=== PATIENT | female | born 1940 | race Caucasian/White ===

== ENCOUNTER 2016-12-17 08:57 | Inpatient (IN) | payer OTHER ==
[~2016-12-17] VITALS: Ht 162.6 cm; Wt 56.5 kg
[~2016-12-17 08:57] MED LIST: CLONAZEPAM0.5 MG PO; HYDROCHLOROTHIA25 MG PO; LOPRESSOR100 M1 PO; METOCLOPRAMIDE10 MG PO; PREVACID15 M2 PO; PREVACID30 MG PO; TOPROL XL100 MG PO; TRIAMTERENE-HC1 EACH PO; ZANTAC150 MG PO; ZOFRAN4 MG PO; ZOFRAN8 MG PO
[2016-12-17 10:28] LABS: EOSINOPHIL (%) 0.4 % (0-5); HEMATOCRIT 42.8 % (36.0-46.0); INSTRUMENT ABS NEUTROPHIL CT 3.4 K/uL; LYMPHOCYTE COUNT 0.7 K/uL (1.0-2.8); MCH 29.4 PG (29.0-34.0); MCHC 32.5 G/DL (30.0-36.0); MCV 90.7 FL (83-99); MEAN PLAT.VOLUME 10.6 uM^3 (9.5-12.4); MONOCYTE (%) 14.8 % (3-12); MONOCYTE COUNT 0.7 K/uL (0-0.8); NEUTROPHIL (%) 69.8 % (45-76); NEUTROPHIL COUNT 3.4 K/uL (1.8-6.4); PLATELET COUNT 203 K/uL (156-360); RBC DIS.WIDTH-CV 12.2 % (11.8-14.6); RBC DIS.WIDTH-SD 40.7 % (39-53); RED BLOOD COUNT 4.72 M/uL (3.80-5.20); WHITE BLOOD COUNT 4.9 K/uL (4.1-10.2)
[2016-12-17 10:39] LABS: CHLORIDE 101 mEq/L (99-109); POTASSIUM 3.8 mEq/L (3.7-5.4); SODIUM 140 mEq/L (136-147)
[2016-12-17 10:41] LABS: GLUCOSE 90 mg/dL (70-99)
[2016-12-17 10:42] LABS: ANION GAP 11 MEQ/L (2-14)
[2016-12-17 10:43] LABS: TOTAL BILIRUBIN 0.7 mg/dL (0.0-1.0)
[2016-12-17 10:45] LABS: ALKALINE PHOSPHATASE 64 IU/L (3-129); GFR ESTIMATE (CALCULATED) 46 mL/min/
[2016-12-17 10:46] LABS: UREA NITROGEN (BUN) 21 mg/dL (9-23)
[2016-12-17 12:02] LABS: TROP-I INTERPRETATION NEGATIVE; TROPONIN-I < 0.01 ng/mL (0.0-0.30)
[2016-12-17] MEDS ORDERED: TRIAMTERENE-HC1 EAC1 PO (12:55)
[2016-12-17] MEDS ORDERED: ASPIR-LOW81 MG PO (12:57)
[2016-12-17] MEDS ORDERED: VITAMIN D2000 UNIT PO (12:57)
[2016-12-17] MEDS ORDERED: OMEGA-3 KRILL1 EAC3 PO (12:58)
[2016-12-17] MEDS ORDERED: CO Q-10100 MG PO (12:58)
[2016-12-17] MEDS ORDERED: MULTI-DAY VITA1 EACH PO (12:58)
[2016-12-17] MEDS ORDERED: VITAMIN E400 UNIT PO (12:59)
[2016-12-17 14:01] LABS: D-DIMER ELISA 0.32 mg/L FEU (< 0.57)
[2016-12-17 15:46] VITALS: BP 155/67
[2016-12-17] MEDS ORDERED: CEFUROXIME500 MG PO (19:11)
[2016-12-17 19:30] VITALS: BP 141/66
[2016-12-17 19:33] LABS: INFLUENZA A VIRAL ANTIGEN NEGATIVE; INFLUENZA B VIRAL ANTIGEN POSITIVE
[2016-12-17 23:44] VITALS: BP 120/56
[2016-12-18 03:55] VITALS: BP 126/62
[2016-12-18 07:30] LABS: ANION GAP 8 MEQ/L (2-14); CHLORIDE 110 MEQ/L (99-109); GFR ESTIMATE (CALCULATED) 57 mL/min/; GLUCOSE 125 mg/dL (70-99); MAGNESIUM 1.7 mg/dl (1.3-2.7); POTASSIUM 3.9 MEQ/L (3.7-5.4); SAMPLE HEMOLYSIS CHECK 0; SAMPLE ICTERIC CHECK 0; SAMPLE LIPEMIA CHECK 0; SODIUM 143 MEQ/L (136-147); UREA NITROGEN (BUN) 26 mg/dL (9-23)
[2016-12-18 07:35] LABS: HEMATOCRIT 35.7 % (36.0-46.0); MCHC 32.2 G/DL (30.0-36.0); MCV 89.9 FL (83-99); PLATELET COUNT 180 K/uL (156-360); RBC DIS.WIDTH-CV 12.1 % (11.8-14.6); RBC DIS.WIDTH-SD 39.9 % (39-53); RED BLOOD COUNT 3.97 M/uL (3.80-5.20); WHITE BLOOD COUNT 4.1 K/uL (4.1-10.2)
[2016-12-18 07:50] VITALS: BP 145/67
[2016-12-18 12:13] VITALS: BP 125/68
[2016-12-18 16:07] VITALS: BP 130/63
[2016-12-18 19:57] VITALS: BP 140/68
[2016-12-19 00:16] VITALS: BP 142/69
[2016-12-19 05:00] VITALS: BP 120/66
[2016-12-19 06:50] LABS: EOSINOPHIL (%) 0 % (0-5); IMMATURE GRANULOCYTE (%) 0.3 % (0.0-0.7); INSTRUMENT ABS NEUTROPHIL CT 2.9 K/uL; LYMPHOCYTE COUNT 0.7 K/uL (1.0-2.8); MCH 29.3 PG (29.0-34.0); MCHC 32.3 G/DL (30.0-36.0); MCV 90.7 FL (83-99); MEAN PLAT.VOLUME 11.1 uM^3 (9.5-12.4); MONOCYTE (%) 7.8 % (3-12); MONOCYTE COUNT 0.3 K/uL (0-0.8); NEUTROPHIL (%) 74.2 % (45-76); NEUTROPHIL COUNT 2.9 K/uL (1.8-6.4); PLATELET COUNT 190 K/uL (156-360); RBC DIS.WIDTH-CV 12.4 % (11.8-14.6); RBC DIS.WIDTH-SD 40.9 % (39-53)
[2016-12-19 07:15] LABS: ANION GAP 7 MEQ/L (2-14); CHLORIDE 106 MEQ/L (99-109); GFR ESTIMATE (CALCULATED) 46 mL/min/; GLUCOSE 117 mg/dL (70-99); MAGNESIUM 1.9 mg/dl (1.3-2.7); POTASSIUM 4.6 MEQ/L (3.7-5.4); SAMPLE HEMOLYSIS CHECK 0; SAMPLE ICTERIC CHECK 0; SAMPLE LIPEMIA CHECK 0; SODIUM 141 MEQ/L (136-147); UREA NITROGEN (BUN) 32 mg/dL (9-23)
[2016-12-19 08:30] VITALS: BP 151/70
[2016-12-19] MEDS ORDERED: OSELTAMIVIR PHO30 MG PO (09:55)
[2016-12-19] MEDS ORDERED: AZITHROMYCIN500 M1 PO (09:55)
[2016-12-19] MEDS ORDERED: BENZONATATE100 MG PO (09:56)
[2016-12-19] MEDS ORDERED: PREDNISONE20 MG PO (09:56)
== END 2016-12-19 11:40 | disposition home or self-care (01) | DRG 194 ==
LOC: EME 08:57 → EDOF 12:46 → 5WEST 12:46 → EDOF 12:46 → 5WEST 15:04
PROVIDERS: Emergency Medicine; Internal Medicine
DX: J10.1 Influenza due to other identified influenza virus with other respiratory manifestations (principal); J44.0 Chronic obstructive pulmonary disease with (acute) lower respiratory infection; J20.9 Acute bronchitis, unspecified; I10 Essential (primary) hypertension; K21.9 Gastro-esophageal reflux disease without esophagitis
CPT/HCPCS: 36415; 71020; 80048; 80053; 83605; 83735; 83880; 83880 GA; 84484; 85025; 85027; 85379; 87040; 87502; 93005; 94640; 94640 76; 99202; 99281; 99285; G0378; J0456; J0696; J1644; J2930; J7030; J7050; J7512

== ENCOUNTER 2017-04-06 11:37 | Emergency (ER) | payer OTHER ==
[~2017-04-06] VITALS: Ht 162.6 cm; Wt 53.1 kg
[~2017-04-06 11:37] MED LIST changes: +ASPIR-LOW81 MG PO; +AZITHROMYCIN500 M1 PO; +BENZONATATE100 MG PO; +CEFUROXIME500 MG PO; +CO Q-10100 MG PO; +MULTI-DAY VITA1 EACH PO; +OMEGA-3 KRILL1 EAC3 PO; +OSELTAMIVIR PHO30 MG PO; +PREDNISONE20 MG PO; +TRIAMTERENE-HC1 EAC1 PO; +VITAMIN D2000 UNIT PO; +VITAMIN E400 UNIT PO
[2017-04-06 12:39] LABS: HEMATOCRIT 43.6 % (36.0-46.0); MCH 29.2 PG (29.0-34.0); MCHC 33.7 G/DL (30.0-36.0); MCV 86.5 FL (83-99); MEAN PLAT.VOLUME 11.1 uM^3 (9.5-12.4); PLATELET COUNT 247 K/uL (156-360); RBC DIS.WIDTH-CV 11.8 % (11.8-14.6); RBC DIS.WIDTH-SD 37.4 % (39-53); RED BLOOD COUNT 5.04 M/uL (3.80-5.20); WHITE BLOOD COUNT 6.7 K/uL (4.1-10.2)
[2017-04-06 12:51] LABS: CHLORIDE 101 mEq/L (99-109); POTASSIUM 4.6 mEq/L (3.7-5.4); SODIUM 142 mEq/L (136-147)
[2017-04-06 12:53] LABS: GLUCOSE 94 mg/dL (70-99)
[2017-04-06 12:55] LABS: ANION GAP 13 MEQ/L (2-14)
[2017-04-06 12:57] LABS: GFR ESTIMATE (CALCULATED) 29 mL/min/
[2017-04-06 12:58] LABS: UREA NITROGEN (BUN) 26 mg/dL (9-23)
[2017-04-06 14:57] LABS: TROP-I INTERPRETATION NEGATIVE; TROPONIN-I < 0.01 ng/mL (0.0-0.30)
[2017-04-06 16:24] LABS: BILIRUBIN NEGATIVE; BLOOD NEGATIVE; COLOR YELLOW ((YELLOW)); GLUCOSE (STRIP) NEGATIVE; KETONES NEGATIVE; LEUKOCYTES NEGATIVE; NITRITE NEGATIVE; PROTEIN (STRIP) NEGATIVE; SPECIFIC GRAVITY 1.012 (1.000-1.030); UROBILINOGEN 0.2 MG/DL (0.2-1.0)
[2017-04-06 16:25] LABS: ADD MIUA? NO; UCUL ADDED? NO
[2017-04-06 18:39] LABS: CHLORIDE 106 mEq/L (99-109); POTASSIUM 4.5 mEq/L (3.7-5.4); SODIUM 144 mEq/L (136-147)
[2017-04-06 18:41] LABS: GLUCOSE 114 mg/dL (70-99)
[2017-04-06 18:42] LABS: ANION GAP 12 MEQ/L (2-14)
[2017-04-06 18:45] LABS: GFR ESTIMATE (CALCULATED) 36 mL/min/; UREA NITROGEN (BUN) 24 mg/dL (9-23)
[2017-04-06 22:30] VITALS: BP 147/73
== END 2017-04-06 22:31 | disposition home or self-care (01) ==
LOC: EME 11:37
PROVIDERS: Emergency Medicine; Physician Assistant
DX: R06.02 Shortness of breath (principal); R42 Dizziness and giddiness; I10 Essential (primary) hypertension; K21.9 Gastro-esophageal reflux disease without esophagitis
CPT/HCPCS: 71020; 80048; 80048 91; 81003; 84484; 85027; 93005; 99281; 99285; J7040; J7120

== ENCOUNTER 2017-04-23 17:58 | Emergency (ER) | payer OTHER ==
[~2017-04-23] VITALS: Ht 162.6 cm; Wt 71.0 kg
[2017-04-23 18:46] LABS: POINT-OF-CARE METER ID UU13113778; POINT-OF-CARE USER ID NUTJNM
[2017-04-23 19:27] LABS: CHLORIDE 101 mEq/L (99-109); POTASSIUM 4.6 mEq/L (3.7-5.4); SODIUM 138 mEq/L (136-147)
[2017-04-23 19:28] LABS: GLUCOSE 122 mg/dL (70-99)
[2017-04-23 19:29] LABS: MCH 29.5 PG (29.0-34.0); MCHC 34.1 G/DL (30.0-36.0); MCV 86.4 FL (83-99); MEAN PLAT.VOLUME 10.3 uM^3 (9.5-12.4); RBC DIS.WIDTH-CV 11.9 % (11.8-14.6); RBC DIS.WIDTH-SD 38.3 % (39-53); RED BLOOD COUNT 5.09 M/uL (3.80-5.20); WHITE BLOOD COUNT 8.8 K/uL (4.1-10.2)
[2017-04-23 19:30] LABS: ANION GAP 19 MEQ/L (2-14)
[2017-04-23 19:32] LABS: GFR ESTIMATE (CALCULATED) 39 mL/min/
[2017-04-23 19:33] LABS: UREA NITROGEN (BUN) 38 mg/dL (9-23)
[2017-04-23 19:34] LABS: PLATELET COUNT 338 K/uL (156-360)
[2017-04-23 19:41] LABS: TROP-I INTERPRETATION NEGATIVE; TROPONIN-I < 0.01 ng/mL (0.0-0.30)
[2017-04-24 01:31] VITALS: BP 145/74
== END 2017-04-24 01:36 | disposition home or self-care (01) ==
LOC: EME 17:58
DX: R07.89 Other chest pain (principal); I10 Essential (primary) hypertension; K21.9 Gastro-esophageal reflux disease without esophagitis; J44.9 Chronic obstructive pulmonary disease, unspecified; I25.10 Atherosclerotic heart disease of native coronary artery without angina pectoris; F41.9 Anxiety disorder, unspecified; F32.9 Major depressive disorder, single episode, unspecified; Z87.01 Personal history of pneumonia (recurrent); Z90.710 Acquired absence of both cervix and uterus; Z79.82 Long term (current) use of aspirin
CPT/HCPCS: 71020; 71275; 80048; 82948; 84484; 85027; 93005; 99281; 99285

== ENCOUNTER 2017-05-09 09:50 | Day surgery (SDC) | payer OTHER ==
[~2017-05-09] VITALS: Ht 162.6 cm; Wt 54.0 kg
[~2017-05-09 09:50] MED LIST changes: +CARDIZEM CD,CA120 MG PO; +[UNRECOGNIZED DRUG - CODE] SL
== END 2017-05-09 17:20 | disposition home or self-care (01) ==
LOC: CATH 09:50
DX: I25.10 Atherosclerotic heart disease of native coronary artery without angina pectoris (principal); I35.2 Nonrheumatic aortic (valve) stenosis with insufficiency; I34.0 Nonrheumatic mitral (valve) insufficiency; I47.1 Supraventricular tachycardia; Z79.82 Long term (current) use of aspirin; Z82.49 Family history of ischemic heart disease and other diseases of the circulatory system
CPT/HCPCS: C1769; C1887; J1644; J2250; J3010

== ENCOUNTER 2017-09-12 10:37 | Inpatient (IN) | payer OTHER ==
[~2017-09-12] VITALS: Ht 162.6 cm; Wt 54.2 kg
[2017-09-12 11:23] LABS: HEMATOCRIT 42.4 % (36.0-46.0); HEMOGLOBIN 14.1 G/DL (11.9-15.5); MCH 29.6 PG (29.0-34.0); MCHC 33.3 G/DL (30.0-36.0); MCV 89.1 FL (83-99); PLATELET COUNT 188 K/uL (156-360); RBC DIS.WIDTH-CV 12.4 % (11.8-14.6); RBC DIS.WIDTH-SD 40.7 % (39-53); RED BLOOD COUNT 4.76 M/uL (3.80-5.20); WHITE BLOOD COUNT 4.8 K/uL (4.1-10.2)
[2017-09-12 11:38] LABS: CHLORIDE 101 mEq/L (99-109); POTASSIUM 4.5 mEq/L (3.7-5.4); SODIUM 139 mEq/L (136-147)
[2017-09-12 11:39] LABS: GLUCOSE 106 mg/dL (70-99)
[2017-09-12 11:43] LABS: CREATININE 1.7 mg/dL (0.6-1.3); GFR ESTIMATE (CALCULATED) 31 mL/min/
[2017-09-12 11:44] LABS: UREA NITROGEN (BUN) 23 mg/dL (9-23)
[2017-09-12] MEDS ORDERED: ZANTAC300 MG PO (17:32)
[2017-09-12] MEDS ORDERED: PREVAGEN PO (17:32)
[2017-09-12] MEDS ORDERED: TRAMADOL HCL50 MG PO (17:33)
[2017-09-12] MEDS ORDERED: ADVAIR HFA120 INHAL2 IH (17:33)
[2017-09-12] MEDS ORDERED: PROAIR HFA8.5 GM IH (17:33)
[2017-09-12 22:11] VITALS: BP 149/69
[2017-09-13 06:39] LABS: HEMOGLOBIN 12.3 G/DL (11.9-15.5); MCH 29.4 PG (29.0-34.0); MCHC 33.2 G/DL (30.0-36.0); MCV 88.5 FL (83-99); PLATELET COUNT 162 K/uL (156-360); RBC DIS.WIDTH-CV 12.2 % (11.8-14.6); RED BLOOD COUNT 4.18 M/uL (3.80-5.20)
[2017-09-13 07:09] LABS: CHLORIDE 107 MEQ/L (99-109); GLUCOSE 90 mg/dL (70-99); SODIUM 141 MEQ/L (136-147); UREA NITROGEN (BUN) 19 mg/dL (9-23)
[2017-09-13 07:12] LABS: CREATININE 1.2 MG/DL (0.6-1.3)
[2017-09-13 07:13] LABS: GFR ESTIMATE (CALCULATED) 46 mL/min/
[2017-09-13 08:00] VITALS: BP 133/98
[2017-09-13 12:35] VITALS: BP 113/57
[2017-09-13] MEDS ORDERED: ELIQUIS5 MG PO ×2 (14:17→14:18)
[2017-09-13 16:27] VITALS: BP 139/69
[2017-09-13 19:43] VITALS: BP 121/58
[2017-09-13 23:58] VITALS: BP 123/65
[2017-09-14 03:41] VITALS: BP 126/62
[2017-09-14 06:42] LABS: HEMATOCRIT 39.2 % (36.0-46.0); HEMOGLOBIN 12.8 G/DL (11.9-15.5); MCH 28.8 PG (29.0-34.0); MCHC 32.7 G/DL (30.0-36.0); MCV 88.1 FL (83-99); PLATELET COUNT 179 K/uL (156-360); RBC DIS.WIDTH-CV 12.3 % (11.8-14.6); RBC DIS.WIDTH-SD 39.9 % (39-53); RED BLOOD COUNT 4.45 M/uL (3.80-5.20); WHITE BLOOD COUNT 3.4 K/uL (4.1-10.2)
[2017-09-14 07:06] VITALS: BP 161/74
[2017-09-14 07:07] LABS: CHLORIDE 107 MEQ/L (99-109); CREATININE 1.1 MG/DL (0.6-1.3); GFR ESTIMATE (CALCULATED) 51 mL/min/; GLUCOSE 101 mg/dL (70-99); POTASSIUM 3.9 MEQ/L (3.7-5.4); SODIUM 142 MEQ/L (136-147); UREA NITROGEN (BUN) 18 mg/dL (9-23)
[2017-09-14 11:07] VITALS: BP 118/64
[2017-09-14 15:35] VITALS: BP 109/64
[2017-09-14 20:12] VITALS: BP 133/70
[2017-09-15 00:15] VITALS: BP 136/66
[2017-09-15 03:53] VITALS: BP 131/66
[2017-09-15 06:45] LABS: HEMATOCRIT 41.5 % (36.0-46.0); HEMOGLOBIN 13.7 G/DL (11.9-15.5); MCH 29.2 PG (29.0-34.0); MCV 88.5 FL (83-99); PLATELET COUNT 203 K/uL (156-360); RBC DIS.WIDTH-CV 12.3 % (11.8-14.6); RBC DIS.WIDTH-SD 40.1 % (39-53); RED BLOOD COUNT 4.69 M/uL (3.80-5.20)
[2017-09-15 08:43] VITALS: BP 139/60
[2017-09-15] MEDS ORDERED: AZITHROMYCIN500 M1 PO (10:09)
[2017-09-15] MEDS ORDERED: AZITHROMYCIN250 MG1 PO (10:54)
[2017-09-15 11:33] VITALS: BP 136/64
== END 2017-09-15 14:18 | disposition home or self-care (01) | DRG 176 ==
LOC: EME 10:37 → 5SOUTH 17:34 → EDOF 17:34 → ENRESERV 17:35 → EDOF 18:09 → CANRESERV 18:10 → ENRESERV 18:10 → 5SOUTH 21:51
PROVIDERS: Hospitalist; Internal Medicine; Physician Assistant
DX: I26.99 Other pulmonary embolism without acute cor pulmonale (principal); N17.9 Acute kidney failure, unspecified; J44.0 Chronic obstructive pulmonary disease with (acute) lower respiratory infection; J20.9 Acute bronchitis, unspecified; R04.2 Hemoptysis; I10 Essential (primary) hypertension; E53.8 Deficiency of other specified B group vitamins; E55.9 Vitamin D deficiency, unspecified; F32.9 Major depressive disorder, single episode, unspecified; F41.1 Generalized anxiety disorder; K21.9 Gastro-esophageal reflux disease without esophagitis; M19.90 Unspecified osteoarthritis, unspecified site
CPT/HCPCS: 71020; 71275; 78582; 80048; 85027; 85379; 93970; 94640; 99202; 99281; 99284; A9540; A9567; J1650; J2405; J7030

== ENCOUNTER 2018-02-11 16:00 | Observation (INO) | payer OTHER ==
[~2018-02-11] VITALS: Ht 162.6 cm; Wt 54.9 kg
[~2018-02-11 16:00] MED LIST changes: +ADVAIR HFA120 INHAL2 IH; +AZITHROMYCIN250 MG1 PO; +ELIQUIS5 MG PO; +PREVAGEN PO; +PROAIR HFA8.5 GM IH; +TRAMADOL HCL50 MG PO; +ZANTAC300 MG PO
[2018-02-11 17:10] LABS: HEMATOCRIT 43.5 % (36.0-46.0); HEMOGLOBIN 14.9 G/DL (11.9-15.5); MCH 30.1 PG (29.0-34.0); MCHC 34.3 G/DL (30.0-36.0); MCV 87.9 FL (83-99); PLATELET COUNT 229 K/uL (156-360); RBC DIS.WIDTH-CV 12.2 % (11.8-14.6); RBC DIS.WIDTH-SD 39.2 % (39-53); RED BLOOD COUNT 4.95 M/uL (3.80-5.20)
[2018-02-11 17:18] LABS: APPEARANCE SL.HAZY ((CLEAR)); BILIRUBIN NEGATIVE; BLOOD NEGATIVE; COLOR YELLOW ((YELLOW)); GLUCOSE (STRIP) NEGATIVE; KETONES NEGATIVE; LEUKOCYTES NEGATIVE; NITRITE NEGATIVE; PROTEIN (STRIP) NEGATIVE; UROBILINOGEN 0.2 MG/DL (0.2-1.0)
[2018-02-11 17:19] LABS: CHLORIDE 103 mEq/L (99-109); POTASSIUM 4.1 mEq/L (3.7-5.4); SODIUM 142 mEq/L (136-147)
[2018-02-11 17:21] LABS: GLUCOSE 89 mg/dL (70-99); TOTAL PROTEIN 7.1 g/dL (6.4-8.3)
[2018-02-11 17:24] LABS: ALKALINE PHOSPHATASE 67 IU/L (3-129); CREATININE 1.4 mg/dL (0.6-1.3); GFR ESTIMATE (CALCULATED) 39 mL/min/
[2018-02-11 17:26] LABS: AST (GOT) 23 IU/L (2-34); UREA NITROGEN (BUN) 32 mg/dL (9-23)
[2018-02-11 17:27] LABS: ALT (GPT) 15 IU/L (3-49)
[2018-02-11 17:28] LABS: LIPASE 42 U/L (1.0-51.0)
[2018-02-11 17:34] LABS: TROP-I INTERPRETATION NEGATIVE; TROPONIN-I < 0.01 ng/mL (0.0-0.30)
[2018-02-11 18:08] LABS: BACTERIA NONE SEEN /HPF; EPITHELIAL CELLS RARE /HPF; MUCUS NONE SEEN /LPF; RED BLOOD CELLS 0-5 /HPF (0-5); UCUL ADDED? NO; WHITE BLOOD CELLS 0-5 /HPF (0-5)
[2018-02-11] MEDS ORDERED: ALEVE220 M2 PO (20:31)
[2018-02-11] MEDS ORDERED: MAXZIDE 37.5 M1 EACH PO (20:31)
[2018-02-11] MEDS ORDERED: VITAMIN B-625 MG PO (20:32)
[2018-02-11 22:01] VITALS: BP 165/71
[2018-02-11 23:18] LABS: TROP-I INTERPRETATION NEGATIVE; TROPONIN-I < 0.01 ng/mL (0.0-0.30)
[2018-02-12 00:24] VITALS: BP 138/63
[2018-02-12 04:32] VITALS: BP 146/68
[2018-02-12 05:35] LABS: HEMATOCRIT 39.5 % (36.0-46.0); HEMOGLOBIN 13.2 G/DL (11.9-15.5); MCH 29.8 PG (29.0-34.0); MCHC 33.4 G/DL (30.0-36.0); MCV 89.2 FL (83-99); PLATELET COUNT 198 K/uL (156-360); RBC DIS.WIDTH-CV 12.2 % (11.8-14.6); RBC DIS.WIDTH-SD 39.8 % (39-53); RED BLOOD COUNT 4.43 M/uL (3.80-5.20); WHITE BLOOD COUNT 4.6 K/uL (4.1-10.2)
[2018-02-12 05:55] LABS: TROP-I INTERPRETATION NEGATIVE; TROPONIN-I < 0.01 ng/mL (0.0-0.30)
[2018-02-12 05:58] LABS: CHLORIDE 104 MEQ/L (99-109); CREATININE 1.3 MG/DL (0.6-1.3); GFR ESTIMATE (CALCULATED) 42 mL/min/; GLUCOSE 86 mg/dL (70-99); POTASSIUM 4.5 MEQ/L (3.7-5.4); SODIUM 142 MEQ/L (136-147); UREA NITROGEN (BUN) 27 mg/dL (9-23)
[2018-02-12 07:53] LABS: INTACT PARATHYROID HORMONE 52 pg/mL (10-69)
[2018-02-12 08:22] VITALS: BP 186/75
[2018-02-12] MEDS ORDERED: LISINOPRIL5 MG PO (09:43)
[2018-02-12 09:45] VITALS: BP 153/71
== END 2018-02-12 11:01 | disposition home or self-care (01) ==
LOC: EME 16:00 → EDOF 20:54 → 4SOUTH 20:54 → ENRESERV 21:07 → 4SOUTH 21:48
PROVIDERS: Emergency Medicine; Hospitalist
DX: R07.9 Chest pain, unspecified (principal); I10 Essential (primary) hypertension; I25.10 Atherosclerotic heart disease of native coronary artery without angina pectoris; E83.52 Hypercalcemia; K21.9 Gastro-esophageal reflux disease without esophagitis; Z86.711 Personal history of pulmonary embolism; J44.9 Chronic obstructive pulmonary disease, unspecified; N17.9 Acute kidney failure, unspecified; E86.0 Dehydration; E53.8 Deficiency of other specified B group vitamins; M19.90 Unspecified osteoarthritis, unspecified site; F41.9 Anxiety disorder, unspecified; E55.9 Vitamin D deficiency, unspecified; Z86.19 Personal history of other infectious and parasitic diseases; Z90.710 Acquired absence of both cervix and uterus; Z80.8 Family history of malignant neoplasm of other organs or systems; Z83.49 Family history of other endocrine, nutritional and metabolic diseases; Z84.1 Family history of disorders of kidney and ureter
CPT/HCPCS: 71045; 71275; 80048; 80053; 81003; 83690; 83970; 84443; 84484; 85027; 93005; 99202; 99281; 99285; G0378; J1644; J2405; J7030

== ENCOUNTER → 2018-02-26 | Outpatient (CLI) | payer OTHER ==
[~2018-02-26] MED LIST changes: +ALEVE220 M2 PO; +LISINOPRIL5 MG PO; +MAXZIDE 37.5 M1 EACH PO; +VITAMIN B-625 MG PO
== END | disposition home or self-care (01) ==
LOC: NUC 08:42
DX: E83.52 Hypercalcemia (principal)
CPT/HCPCS: 78072; A9500; A9512

== ENCOUNTER 2018-04-27 22:40 | Emergency (ER) | payer OTHER ==
[~2018-04-27] VITALS: Ht 160 cm; Wt 52.3 kg
[2018-04-27 23:34] LABS: HEMATOCRIT 41.2 % (36.0-46.0); HEMOGLOBIN 13.7 G/DL (11.9-15.5); MCH 29.8 PG (29.0-34.0); MCHC 33.3 G/DL (30.0-36.0); MCV 89.8 FL (83-99); PLATELET COUNT 240 K/uL (156-360); RBC DIS.WIDTH-CV 12.2 % (11.8-14.6); RBC DIS.WIDTH-SD 39.7 % (39-53); RED BLOOD COUNT 4.59 M/uL (3.80-5.20); WHITE BLOOD COUNT 10.8 K/uL (4.1-10.2)
[2018-04-27 23:41] LABS: CHLORIDE 107 mEq/L (99-109); POTASSIUM 3.8 mEq/L (3.7-5.4); SODIUM 142 mEq/L (136-147)
[2018-04-27 23:43] LABS: GLUCOSE 134 mg/dL (70-99); TOTAL PROTEIN 6.6 g/dL (6.4-8.3)
[2018-04-27 23:45] LABS: TOTAL BILIRUBIN 0.7 mg/dL (0.0-1.0)
[2018-04-27 23:47] LABS: ALKALINE PHOSPHATASE 64 IU/L (3-129); CREATININE 1.1 mg/dL (0.6-1.3); GFR ESTIMATE (CALCULATED) 51 mL/min/
[2018-04-27 23:48] LABS: UREA NITROGEN (BUN) 20 mg/dL (9-23)
[2018-04-27 23:49] LABS: AST (GOT) 18 IU/L (2-34)
[2018-04-27 23:50] LABS: ALT (GPT) 16 IU/L (3-49); LIPASE 31 U/L (1.0-51.0)
[2018-04-28 00:32] LABS: APPEARANCE CLOUDY ((CLEAR)); BILIRUBIN NEGATIVE; BLOOD SMALL; COLOR YELLOW ((YELLOW)); GLUCOSE (STRIP) NEGATIVE; KETONES NEGATIVE; LEUKOCYTES NEGATIVE; NITRITE NEGATIVE; PROTEIN (STRIP) NEGATIVE; SPECIFIC GRAVITY 1.016 (1.000-1.030); UROBILINOGEN 0.2 MG/DL (0.2-1.0)
[2018-04-28 00:59] LABS: TROP-I INTERPRETATION NEGATIVE; TROPONIN-I < 0.01 ng/mL (0.0-0.30)
[2018-04-28 01:02] LABS: AMORPHOUS URATES CRYSTALS 3+; BACTERIA 1+ /HPF; EPITHELIAL CELLS RARE /HPF; MUCUS NONE SEEN /LPF; RED BLOOD CELLS NONE SEEN /HPF (0-5); UCUL ADDED? NO; WHITE BLOOD CELLS 0-5 /HPF (0-5)
[2018-04-28 04:15] VITALS: BP 137/70
== END 2018-04-28 04:15 | disposition home or self-care (01) ==
LOC: EME 22:40
DX: R10.13 Epigastric pain (principal); R11.2 Nausea with vomiting, unspecified; R19.7 Diarrhea, unspecified; I77.4 Celiac artery compression syndrome; K55.1 Chronic vascular disorders of intestine; J45.909 Unspecified asthma, uncomplicated; I10 Essential (primary) hypertension; Z79.82 Long term (current) use of aspirin; Z90.710 Acquired absence of both cervix and uterus
CPT/HCPCS: 74174; 80053; 81003; 83690; 84484; 85027; 93005; 99281; 99285

== ENCOUNTER 2018-05-15 10:42 | Observation (INO) | payer OTHER ==
[~2018-05-15] VITALS: Ht 160 cm; Wt 51.8 kg
[2018-05-15 11:11] LABS: HEMATOCRIT 42.5 % (36.0-46.0); HEMOGLOBIN 14.3 G/DL (11.9-15.5); MCH 30.2 PG (29.0-34.0); MCHC 33.6 G/DL (30.0-36.0); MCV 89.7 FL (83-99); PLATELET COUNT 233 K/uL (156-360); RBC DIS.WIDTH-SD 39.6 % (39-53); RED BLOOD COUNT 4.74 M/uL (3.80-5.20); WHITE BLOOD COUNT 5.6 K/uL (4.1-10.2)
[2018-05-15 11:20] LABS: CHLORIDE 107 mEq/L (99-109); POTASSIUM 4.6 mEq/L (3.7-5.4); SODIUM 140 mEq/L (136-147)
[2018-05-15 11:22] LABS: GLUCOSE 108 mg/dL (70-99)
[2018-05-15 11:26] LABS: CREATININE 1.3 mg/dL (0.6-1.3); GFR ESTIMATE (CALCULATED) 42 mL/min/; UREA NITROGEN (BUN) 19 mg/dL (9-23)
[2018-05-15 11:32] LABS: TROP-I INTERPRETATION NEGATIVE; TROPONIN-I < 0.01 ng/mL (0.0-0.30)
[2018-05-15 12:40] LABS: D-DIMER ELISA < 150.00 ng/mLDDU (<230)
[2018-05-15 14:39] LABS: TROP-I INTERPRETATION NEGATIVE; TROPONIN-I < 0.01 ng/mL (0.0-0.30)
[2018-05-15] MEDS ORDERED: PREVACID30 MG PO (14:56)
[2018-05-15] MEDS ORDERED: ZOFRAN8 MG PO (15:04)
[2018-05-15] MEDS ORDERED: LINZESS145 MCG PO (15:05)
[2018-05-15 15:58] VITALS: BP 181/75
[2018-05-15 16:33] LABS: TROP-I INTERPRETATION NEGATIVE; TROPONIN-I < 0.01 ng/mL (0.0-0.30)
[2018-05-15 17:47] VITALS: BP 161/68
[2018-05-15 19:00] VITALS: BP 141/63
[2018-05-15 22:00] LABS: TROP-I INTERPRETATION NEGATIVE; TROPONIN-I < 0.01 ng/mL (0.0-0.30)
[2018-05-16 00:02] VITALS: BP 168/80
[2018-05-16 04:01] VITALS: BP 159/68
[2018-05-16 08:57] VITALS: BP 145/65
== END 2018-05-16 11:13 | disposition home or self-care (01) ==
LOC: EME 10:42 → EDOF 14:28 → ENRESERV 14:29 → 4SOUTH 15:55
PROVIDERS: Hospitalist; Nurse Practitioner Family
DX: R07.89 Other chest pain (principal); I12.9 Hypertensive chronic kidney disease with stage 1 through stage 4 chronic kidney disease, or unspecified chronic kidney disease; N18.9 Chronic kidney disease, unspecified; E83.52 Hypercalcemia; Z86.711 Personal history of pulmonary embolism; I77.4 Celiac artery compression syndrome; G89.29 Other chronic pain; K55.1 Chronic vascular disorders of intestine; I49.3 Ventricular premature depolarization; I25.10 Atherosclerotic heart disease of native coronary artery without angina pectoris; J44.9 Chronic obstructive pulmonary disease, unspecified; F41.9 Anxiety disorder, unspecified; K21.9 Gastro-esophageal reflux disease without esophagitis; I35.2 Nonrheumatic aortic (valve) stenosis with insufficiency; Z79.82 Long term (current) use of aspirin; M19.90 Unspecified osteoarthritis, unspecified site; E55.9 Vitamin D deficiency, unspecified; E53.8 Deficiency of other specified B group vitamins; Z90.710 Acquired absence of both cervix and uterus; Z90.49 Acquired absence of other specified parts of digestive tract; Z98.890 Other specified postprocedural states; Z84.1 Family history of disorders of kidney and ureter; Z80.9 Family history of malignant neoplasm, unspecified
CPT/HCPCS: 71046; 80048; 84484; 85027; 85379; 93005; 94799; 99281; 99285; G0378; J0360; J1650